=== PATIENT | female | born 1960 | race American Indian/Alaskan Native ===

== ENCOUNTER 2021-02-03 16:19 | Emergency (ER) | payer BC, MEDICAID ==
[2021-02-03] MEDS ORDERED: Amoxicillin 500 MG Cap PO ONE (20:37)
--- NOTE | 2021-02-03 20:41 | EDM.PDOC ---
ED HPI GENERAL MEDICAL PROBLEM - General Chief Complaint: ENT Problem Stated Complaint: RIGHT SIDE, TOP & BOTTOM BACK TEETH. Time Seen by Provider: 02/03/21 20:15 Source of Information: Reports: Patient History Limitations: Reports: No Limitations - History of Present Illness INITIAL COMMENTS - FREE TEXT/NARRATIVE: Patient comes emergency department today with complaints of a dental abscess and a dental infection. This patient for the past couple of days has had pain in the right upper molar region and her jaw. She was eating some spaghetti a couple days ago and suddenly had some pain. Last 2 days she has had quite a bit of swelling on the lateral aspect of her face. She has no fever no chills. No difficulty swallowing. No trismus. No shortness of breath. No drooling. She has not tried to see a dentist yet. 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, Other Medication(s) Right Tooth/Teeth Pain Score (Numeric/FACES): 5 - Related Data Allergies Allergy/AdvReac Type Severity Reaction Status Date / Time erythromycin base Allergy Unknown UNKNOWN Unverified 02/03/21 20:04 nicotine Allergy Unknown UNKNOWN Unverified 02/03/21 20:04 Home Meds: Home Meds metFORMIN [Glucophage] 1,000 mg PO BID 08/29/15 [History] Bp Pills 02/03/21 [History] Calcium 02/03/21 [History] Cholesterol Pill 02/03/21 [History] Insulin Detemir [Levemir] 55 unit SQ BID 02/03/21 [History] Thyroid Pill 02/03/21 [History] Vit D 02/03/21 [History] Past Medical History Cardiovascular History: Reports: High Cholesterol, Hypertension Endocrine/Metabolic History: Reports: Diabetes, Type II, Hypothyroidism Social & Family History - Family History Family Medical History: No Pertinent Family History - Tobacco Use Tobacco Use Status *Q: Current Every Day Tobacco User Years of Tobacco use: 40 Packs/Tins Daily: 1 - Caffeine Use Caffeine Use: Reports: Energy Drinks - Recreational Drug Use Recreational Drug Use: No ED ROS ENT - Review of Systems Review Of Systems: Comprehensive ROS is negative, except as noted in HPI. ED EXAM, ENT - Physical Exam Exam: See Below Exam Limited By: No Limitations General Appearance: Alert, WD/WN, No Apparent Distress Eye Exam: Bilateral Eye: PERRL Ears: Normal External Exam, Normal TMs Nose: Normal Inspection Mouth/Throat: Dental Pain (She has dental pain in the right upper first molar region. There is rather impressive amount of large decay in those teeth.), Dental Tenderness (Right upper first molar), Other (Most of the right upper first molar is decayed away and down to the pulp. ). No: Dental Abcess, Drooling, Gum Swelling (There is no gum swelling. There is no sign of fluctuance erythema or induration. She has quite a bit of swelling on the lateral aspect of her cheek and it is more indurated in her cheek that it is in her gums in her teeth.), Trismus, Uvular Deviation, Uvular Edema Head: Atraumatic, Normocephalic Neck: Normal Inspection, Supple, Non-Tender, Full Range of Motion Respiratory/Chest: No Respiratory Distress, Lungs Clear Cardiovascular: Normal Peripheral Pulses, Regular Rate, Rhythm GI/Abdominal: Normal Bowel Sounds, Soft, Non-Tender Extremities: Normal Inspection Neurological: Alert, Oriented, CN II-XII Intact, Normal Cognition, No Motor/Sensory Deficits Psychiatric: Normal Affect, Normal Mood Skin: Warm, Dry, Intact, Normal Color, No Rash Course - Vital Signs Last Recorded V/S: Last Vital Signs Temp 97.9 F 02/03/21 20:01 Pulse 89 02/03/21 20:01 Resp 17 02/03/21 20:01 BP 180/117 H 02/03/21 20:01 Pulse Ox 98 02/03/21 20:01 - Orders/Labs/Meds Meds: Medications Discontinued Medications Generic Name Dose Route Start Last Admin Trade Name Lizette PRN Reason Stop Dose Admin Amoxicillin 500 mg 02/03/21 20:37 02/03/21 20:48 Amoxicillin 500 Mg Cap PO 02/03/21 20:38 500 mg ONETIME ONE Administration - Re-Assessments/Exams Free Text/Narrative Re-Assessment/Exam: After verbal consent was obtained from the patient for an isolated dental block to the right first upper molar. 1% liking without epinephrine and 0.5% ropivacaine without epinephrine was mixed in a 50-50 fashion. At the base of the medial and the lateral aspect of the right upper first molar. I injected the above solution patient tolerated the procedure well. No active bleeding. She had excellent pain relief. Interestingly there is no leg gum irritation inflammation or signs of abscess. Primarily the induration is above the cheek so I wonder if this is not a much deeper infection of the tooth causing the swelling in the soft tissues of the face. There is clearly no abscess in the oropharynx at this time. We will treat her with amoxicillin she needs to see a dentist as soon as possible. She is comfortable with this plan and her questions were answered. She had about 75% reduction of the pain in her tooth with the above therapy. Departure - Departure Time of Disposition: 20:39 Disposition: Home, Self-Care 01 Clinical Impression: Infected dental caries - Discharge Information Referrals: Donn Khan [Primary Care Provider] - Forms: ED Department Discharge Additional Instructions: Tylenol and or Ibuprofen as needed for pain. Ice to the face. Amoxicillin, 1 tablet three times a day for the next 7 days. RX given to the patient. First dose given in the ED. See a Dentist [facility] on friday. Return to the ED if new or worsening symptoms. Sepsis Event Note (ED) - Evaluation Sepsis Screening Result: No Definite Risk - Focused Exam Vital Signs: Vital Signs Temp Pulse Resp BP Pulse Ox 02/03/21 20:01 97.9 F 89 17 180/117 H 98
== END 2021-02-03 20:51 | disposition home or self-care (01) ==
LOC: DL.ED 16:19
DX: K04.7 Periapical abscess without sinus (principal); K02.9 Dental caries, unspecified; E78.00 Pure hypercholesterolemia, unspecified; I10 Essential (primary) hypertension; E11.9 Type 2 diabetes mellitus without complications; E03.9 Hypothyroidism, unspecified; Z72.0 Tobacco use; Z88.1 Allergy status to other antibiotic agents; Z88.8 Allergy status to other drugs, medicaments and biological substances
CPT/HCPCS: 64400; 99282; 99283; A9270